=== PATIENT | male | born 1985 | race African-American/Black ===

== ENCOUNTER 2019-07-23 01:47 | Emergency (ER) | payer SELFPAY ==
[2019-07-23] MEDS ORDERED: DOXYCYCLINE 100 MG CAP PO ONE (02:44)
[2019-07-23] MEDS ORDERED: IBUPROFEN 400 MG TAB ONE (02:44)
--- NOTE | 2019-07-23 02:50 | ER ---
Nurse's Notes [facility] Name: Alfredo Day Age: 33 yrs Sex: Male : 1985 Arrival Date: 07/23/2019 Time: 01:49 Bed 7 Private MD: Diagnosis: Cellulitis of left finger-middle Presentation: 07/23 02:00 Presenting complaint: Patient states: about 3 days ago I think I got a bug bite on my jb4 left middle finger. It started off as a bump that got worse so yesterday I tried to pete it and pus and blood came out. the swelling went down a little after that but its still red swollen and painful. 02:00 Transition of care: patient was not received from another setting of care. Onset of jb4 symptoms was July 23, 2019. Risk Assessment: Do you want to hurt yourself or someone else? Patient reports no desire to harm self or others. Initial Sepsis Screen: Does the patient meet any 2 criteria? HR > 90 bpm. Yes Does the patient have a suspected source of infection? Yes: Skin breakdown/wound. Care prior to arrival: None. 02:00 Method Of Arrival: Ambulatory jb4 02:00 Acuity: JAREN 4 jb4 Historical: - Allergies: 02:09 No Known Allergies; jb4 - Home Meds: 02:09 None [Active]; jb4 - PMHx: 02:09 None; jb4 - PSHx: 02:09 None; jb4 - Immunization history:: Adult Immunizations unknown. - Social history:: Smoking status: Patient uses tobacco products, smokes one pack cigarettes per day. Patient uses street drugs, Methamphetamine (Meth) Patient/guardian denies using alcohol. - Ebola Screening: : No symptoms or risks identified at this time. Screenin:04 Abuse screen: Denies threats or abuse. Nutritional screening: No deficits noted. ea Tuberculosis screening: No symptoms or risk factors identified. Fall Risk None identified. Assessment: 02:05 General: Appears in no apparent distress. Behavior is calm, cooperative, appropriate ea for age. Pain: Complains of pain in left hand. Neuro: Level of Consciousness is awake, alert, obeys commands, Oriented to person, place, time, situation. Cardiovascular: Patient's skin is warm and dry. Respiratory: Airway is patent Respiratory effort is even, unlabored, Respiratory pattern is regular, symmetrical. Derm: Skin is pink, warm \T\ dry. swelling to left middle finger. 02:55 Reassessment: Patient appears in no apparent distress at this time. Patient is alert, rr5 oriented x 3, equal unlabored respirations, skin warm/dry/pink. discharge instruction given and explained without complaints made, verbalized understanding Patient states feeling better. Patient states symptoms have improved. Vital Signs: 02:09 BP 135 / 104; Pulse 102; Resp 18; Temp 98.0(O); Pulse Ox 97% on R/A; Weight 97.52 kg jb4 (R); Height 6 ft. 3 in. (190.50 cm) (R); Pain 10/10; 02:50 BP 128 / 90; Pulse 89; Resp 18; Temp 97.8; Pulse Ox 99% on R/A; ea 02:09 Body Mass Index 26.87 (97.52 kg, 190.50 cm) jb4 ED Course: 01:49 Patient arrived in ED. ds1 01:57 Jv Travis PA is PHCP. cp 01:57 Miguel Ángel Marroquin MD is Attending Physician. cp 02:04 Lidia Mcmanus, AMARJIT is Primary Nurse. ea 02:04 Patient has correct armband on for positive identification. Bed in low position. Call ea light in reach. Side rails up X2. 02:04 Arm band placed on right wrist. Patient placed in an exam room, on a stretcher, on ea pulse oximetry. 02:07 Triage completed. jb4 02:47 No provider procedures requiring assistance completed. Patient did not have IV access rr5 during this emergency room visit. Wound care: to puncture located on dorsal aspect of distal phalanx of left middle finger was cleaned with Hibiclens, dressed with Neosporin, band aid, Patient tolerated well. Administered Medications: 02:47 Drug: Doxycycline 100 mg Route: PO; rr5 02:51 Follow up: Response: No adverse reaction ea 02:55 Follow up: Response: Medication administered at discharge. rr5 02:47 Drug: Ibuprofen 800 mg Route: PO; rr5 02:52 Follow up: Response: No adverse reaction ea 02:55 Follow up: Response: Medication administered at discharge. rr5 Outcome: 02:50 Discharge ordered by . cp 02:57 Discharged to home ambulatory. rr5 02:57 Condition: stable 02:57 Discharge instructions given to patient, Instructed on discharge instructions, follow up and referral plans. medication usage, Demonstrated understanding of instructions, follow-up care, medications, Prescriptions given X 2. 02:58 Patient left the ED. rr5 Signatures: Catalina Cheung ds1 Jv Travis PA PA cp Bryson, James, RN RN jb4 Lidia Mcmanus RN RN Jordi Valderrama RN RN rr5
--- NOTE | 2019-07-23 02:50 | EDPHYS ---
Physician Documentation [facility] Name: Alfredo Day Age: 33 yrs Sex: Male : 1985 Arrival Date: 07/23/2019 Time: 01:49 Bed 7 Private MD: ED Physician Miguel Ángel Marroquin HPI: 07/23 02:44 This 33 yrs old Black Male presents to ER via Ambulatory with complaints of Possible cp Bug Bite. 02:44 The patient or guardian reports pain, swelling, tenderness. The complaints affect the cp dorsal side distal phalanx left middle finger. Context: resulted from possible insect bite. Onset: The symptoms/episode began/occurred 3 day(s) ago. Associated signs and symptoms: Pertinent negatives: cyanosis distally, decreased sensation distally, fever. Severity of symptoms: in the emergency department the symptoms are unchanged, despite home interventions. Historical: - Allergies: 02:09 No Known Allergies; jb4 - Home Meds: 02:09 None [Active]; jb4 - PMHx: 02:09 None; jb4 - PSHx: 02:09 None; jb4 - Immunization history:: Adult Immunizations unknown. - Social history:: Smoking status: Patient uses tobacco products, smokes one pack cigarettes per day. Patient uses street drugs, Methamphetamine (Meth) Patient/guardian denies using alcohol. - Ebola Screening: : No symptoms or risks identified at this time. ROS: 02:45 Constitutional: Negative for body aches, chills, fever, poor PO intake. cp 02:45 Skin: Positive for erythema, swelling, of the dorsal side distal phalanx left middle finger. 02:45 Neuro: Negative for numbness. 02:45 All other systems are negative. Exam: 02:47 Constitutional: The patient appears in no acute distress, alert, awake, non-toxic, well cp developed, well nourished. 02:47 Skin: Appearance: swelling, mild erythema, tenderness to palpation, cellulitis, that is mild, on the distal phalanx left middle finger dorsal side. Vital Signs: 02:09 BP 135 / 104; Pulse 102; Resp 18; Temp 98.0(O); Pulse Ox 97% on R/A; Weight 97.52 kg jb4 (R); Height 6 ft. 3 in. (190.50 cm) (R); Pain 10/10; 02:50 BP 128 / 90; Pulse 89; Resp 18; Temp 97.8; Pulse Ox 99% on R/A; ea 02:09 Body Mass Index 26.87 (97.52 kg, 190.50 cm) jb4 MDM: 01:57 Patient medically screened. cp 02:48 Differential diagnosis: abscess, cellulitis, paronychia, felon. Data reviewed: vital cp signs, nurses notes, and as a result, I will discharge patient. Administered Medications: 02:47 Drug: Doxycycline 100 mg Route: PO; rr5 02:51 Follow up: Response: No adverse reaction ea 02:55 Follow up: Response: Medication administered at discharge. rr5 02:47 Drug: Ibuprofen 800 mg Route: PO; rr5 02:52 Follow up: Response: No adverse reaction ea 02:55 Follow up: Response: Medication administered at discharge. rr5 Disposition: 03:05 Chart complete. cp 03:22 Co-signature as Attending Physician, Miguel Ángel Marroquin MD. rn Disposition: 07/23/19 02:50 Discharged to Home. Impression: Cellulitis of left finger - middle. - Condition is Stable. - Discharge Instructions: Cellulitis, Adult. - Prescriptions for Doxycycline Hyclate 100 mg Oral Tablet - take 1 tablet by ORAL route every 12 hours; 20 tablet. Ibuprofen 800 mg Oral Tablet - take 1 tablet by ORAL route every 8 hours As needed take with food; 30 tablet. - Medication Reconciliation Form, Thank You Letter, Antibiotic Education, Prescription Opioid Use form. - Follow up: Private Physician; When: 2 - 3 days; Reason: Recheck today's complaints. - Problem is new. - Symptoms have improved. Signatures: Miguel Ángel Marroquin MD MD rn Page, Corey, PA PA cp Bryson, James, RN RN jb4 Lidia Mcmanus RN RN Jordi Valderrama RN RN rr5 Corrections: (The following items were deleted from the chart) 02:58 02:50 07/23/2019 02:50 Discharged to Home. Impression: Cellulitis of left finger - rr5 middle. Condition is Stable. Forms are Medication Reconciliation Form, Thank You Letter, Antibiotic Education, Prescription Opioid Use. Follow up: Private Physician; When: 2 - 3 days; Reason: Recheck today's complaints. Problem is new. Symptoms have improved. cp
[2019-07-23 03:07] VITALS: BP 128/90; TEMP 97.8; O2SAT 99
== END 2019-07-23 02:58 | disposition home or self-care (01) ==
LOC: ER 01:47
DX: L03.012 Cellulitis of left finger (principal); F17.210 Nicotine dependence, cigarettes, uncomplicated
CPT/HCPCS: 99284

== ENCOUNTER 2023-04-21 19:45 | Emergency (ER) | payer SELFPAY ==
[2023-04-21] MEDS ORDERED: DICYCLOMINE HCL 20 MG/2 ML AMP IM ONE (21:17)
[2023-04-21] MEDS ORDERED: NA CHLORIDE 0.9% 1,000 ML ONE ×2 (21:17→22:16)
[2023-04-21] MEDS ORDERED: ONDANSETRON 4 MG/2 ML VIAL ONE (21:17)
[2023-04-21] MEDS ORDERED: FAMOTIDINE 20 MG/2 ML VIAL IV ONE (21:18)
[2023-04-21 21:42] LABS: Absolute Lymphocytes (CBC) 1.3 K/uL (0.7-4.9); Hematocrit 50.8 % (39.6-49.0); MCV 94.7 fL (80-100); MPV 8.2 fL (7.6-11.3); RBC Red Blood Cell Count 5.36 M/uL (4.33-5.43)
[2023-04-21 21:46] LABS: Specific Gravity > 1.030 (1.005-1.030); Urine Bacteria None Seen /HPF (<20); Urine Bilirubin NEGATIVE (Negative); Urine Blood 1+ (Negative); Urine Clarity Extremely Turbid (Clear); Urine Color Yellow (Yellow); Urine Crystals Unidentified Few /HPF (None Seen); Urine Glucose NEGATIVE (Negative); Urine Mucus 1+ /HPF (None Seen); Urine Protein 1+ (Negative); Urine Urobilinogen Normal (Normal); Urine pH 5.5 (5.0-7.0)
[2023-04-21 21:54] LABS: Albumin 3.5 g/dL (3.4-5.0); Bilirubin Total 0.5 mg/dL (0.2-1.0); Potassium 3.7 mEq/L (3.5-5.1); Protein, Total 7.8 g/dL (6.4-8.2)
[2023-04-21 22:28] LABS: Barbiturates NEGATIVE (NEGATIVE); Benzodiazepines NEGATIVE (NEGATIVE); Cocaine NEGATIVE (NEGATIVE); METHAMPHETAM NEGATIVE (NEGATIVE); Methadone NEGATIVE (NEGATIVE); Opiates NEGATIVE (NEGATIVE); Phencyclidine NEGATIVE (NEGATIVE); THC Cannibis NEGATIVE (NEGATIVE)
--- NOTE | 2023-04-21 22:29 | RAD REPORT ---
EXAM DESCRIPTION: CTAbdomen Pelvis Wo Contrast - 04/21/2023 10:21 pm CLINICAL HISTORY: ABD PAIN COMPARISON: No comparisons TECHNIQUE: CT of the abdomen and pelvis was performed. All CT scans are performed using dose optimization technique as appropriate and may include automated exposure control or mA/KV adjustment according to patient size. FINDINGS: Lower chest: No acute abnormality. Liver: No acute abnormality or suspicious lesions. Biliary: No biliary ductal dilatation. Stomach: No significant focal abnormality. Duodenum: No significant focal abnormality. Pancreas: No significant abnormality. Spleen: No significant abnormality. Adrenal: No suspicious lesions. Kidney/ureter: No hydronephrosis. No renal calculi. 11 mm low-density right interpolar renal lesion i s consistent with a cyst. Minimally complex left renal cyst with some layering calcium. Retroperitoneum: No retroperitoneal adenopathy. Vascular: No aneurysm. Bowel: Diffuse colonic wall thickening which is more pronounced at the ascending and transverse colon . Normal appendix. No small bowel obstruction.. Peritoneum: No ascites or free air. Bladder: Grossly unremarkable. Reproductive: No adnexal masses. Bones: No acute fracture. Other: n/a IMPRESSION: Pancolitis with differential to include infectious inflammatory etiologies. Normal appen jennifer. No bowel obstruction.
[2023-04-21] MEDS ORDERED: CIPROFLOXACIN 400mg IV 400 MG/200 ML BAG IV ONE (22:55)
[2023-04-21] MEDS ORDERED: ACETAMINOPHEN 500 MG TAB ONE (22:55)
[2023-04-21] MEDS ORDERED: METRONIDAZOLE 500mg IVPB 500 MG/100 ML BAG IV ONE (22:55)
--- NOTE | 2023-04-21 23:29 | EDPHYS ---
Physician Documentation [facility] Name: Alfredo Day Age: 37 yrs Sex: Male : 1985 Arrival Date: 04/21/2023 Time: 19:45 Bed 15 Private MD: ED Physician Travon Norris HPI: 04/21 21:00 This 37 yrs old Black Male presents to ER via Ambulatory with complaints of Nausea, cp Diarrhea, bodyaches, chills. 21:00 The patient presents to the emergency department with nausea, that is moderate, cp vomiting, that is intermittent, diarrhea, that is continuous, abdominal pain, of the mid abdomen. Onset: The symptoms/episode began/occurred 2 day(s) ago. Possible causes: bad food exposure, pizza. The symptoms are alleviated by nothing. Associated signs and symptoms: Pertinent positives: anorexia, Pertinent negatives: constipation, fever, GI bleeding, active vomiting. Severity of symptoms: in the emergency department the symptoms are unchanged despite home interventions. Historical: - Allergies: 20:24 No Known Allergies; cm10 - Home Meds: 20:24 None [Active]; cm10 - PMHx: 20:24 None; cm10 - PSHx: 20:24 None; cm10 - Immunization history:: Adult Immunizations unknown. - Social history:: Smoking status: Patient reports the use of cigarette tobacco products, smokes one pack cigarettes per day. ROS: 21:05 Constitutional: Positive for body aches, poor PO intake, Negative for fever. cp 21:05 Eyes: Negative for injury, pain, redness, and discharge. cp 21:05 ENT: Negative for drainage from ear(s), ear pain, sore throat, difficulty swallowing, difficulty handling secretions. 21:05 Respiratory: Negative for cough, shortness of breath, wheezing. 21:05 Abdomen/GI: Positive for abdominal pain, nausea, vomiting, and diarrhea, anorexia, Negative for constipation, black/tarry stool, rectal bleeding. 21:05 Neuro: Negative for altered mental status, headache. 21:05 All other systems are negative. Exam: 21:10 Constitutional: The patient appears in no acute distress, alert, awake, non-toxic, well cp developed, well nourished. 21:10 Head/Face: Normocephalic, atraumatic. cp 21:10 Eyes: Periorbital structures: appear normal, Conjunctiva: normal, no exudate, no injection, Sclera: no appreciated abnormality, Lids and lashes: appear normal, bilaterally. 21:10 ENT: External ear(s): are unremarkable, Nose: is normal, Mouth: Lips: moist, Oral mucosa: pink and intact, moist, Posterior pharynx: is normal, airway is patent, no erythema, no exudate. 21:10 Neck: ROM/movement: is normal, is supple, without pain, no range of motions limitations, no meningismus. 21:10 Chest/axilla: Inspection: normal. 21:10 Cardiovascular: Rate: tachycardic, Rhythm: regular. 21:10 Respiratory: the patient does not display signs of respiratory distress, Respirations: normal, no use of accessory muscles, no retractions, labored breathing, is not present, Breath sounds: are clear throughout, no decreased breath sounds, no stridor, no wheezing. 21:10 Abdomen/GI: Inspection: abdomen appears normal, Bowel sounds: active, all quadrants, Palpation: soft, in all quadrants, moderate abdominal tenderness, in all quadrants, rebound tenderness, is not appreciated, involuntary guarding, is not appreciated. 21:10 Back: pain, is absent, ROM is normal. 21:10 Skin: no rash present. 21:10 Neuro: Orientation: to person, place \T\ time. Mentation: is normal, Motor: moves all fours, strength is normal. Vital Signs: 20:22 BP 143 / 85; Pulse 104; Resp 16; Temp 98.8; Pulse Ox 100% on R/A; Weight 102.06 kg; cm10 Height 6 ft. 3 in. ; Pain 8; 21:23 BP 137 / 89; Pulse 90; Resp 15; Pulse Ox 98% ; vc1 22:00 BP 125 / 77; Pulse 95; Resp 17; Pulse Ox 98% ; vc1 23:00 BP 143 / 74; Pulse 90; Resp 17; Pulse Ox 97% ; vc1 04/22 00:00 BP 137 / 80; Pulse 92; Resp 16; Pulse Ox 97% on R/A; pf1 04/21 20:22 Body Mass Index 28.12 (102.06 kg, 190.5 cm) cm10 04/21 20:22 Pain Scale: Adult cm10 MDM: 04/21 20:33 Patient medically screened. cp 22:00 Differential diagnosis: gastritis, viral gastroenteritis, gastroenteritis, dehydration, cp colitis. 23:28 Data reviewed: vital signs, nurses notes, lab test result(s), radiologic studies, CT cp scan. 23:28 Consideration of Admission/Observation Escalation of care including cp admission/observation considered. I considered the following discharge prescriptions or medication management in the emergency department Medications were administered in the Emergency Department. See MAR. Counseling: I had a detailed discussion with the patient and/or guardian regarding: the historical points, exam findings, and any diagnostic results supporting the discharge/admit diagnosis, lab results, radiology results, the need for outpatient follow up, a lunchroom food service supervisor, to return to the emergency department if symptoms worsen or persist or if there are any questions or concerns that arise at home. Response to treatment: the patient's symptoms have markedly improved after treatment, and as a result, I will discharge patient. Special discussion: Based on the patient's Hx, exam, and Dx evaluation, there is no indication for emergent surgery or inpatient Tx. It is understood by the patient/guardian that if the Sx's persist or worsen they need to return immediately for re-evaluation. 04/21 20:51 Order name: CBC with Diff; Complete Time: 21:57 cp 04/21 21:58 Interpretation: Normal except: WBC 12.60; HCT 50.8; ASHU% 83.5; LYM% 10.0; NEUT A 10.6. cp 04/21 20:51 Order name: CMP; Complete Time: 21:57 04/21 21:58 Interpretation: Normal except: CRE 1.70; GFR 53; GLOB 4.3; A/G 0.8. cp 04/21 20:51 Order name: Lipase; Complete Time: 21:57 cp 04/21 20:51 Order name: Urinalysis w/ reflexes; Complete Time: 21:57 cp 04/21 20:52 Order name: Influenza Screen (a \T\ B); Complete Time: 22:30 cp 04/21 20:52 Order name: COVID-19 SARS RT PCR; Complete Time: 22:30 cp 04/21 22:30 Interpretation: Reviewed. 04/21 21:59 Order name: CK; Complete Time: 22:30 cp 04/21 22:30 Interpretation: Reviewed. 04/21 21:59 Order name: UDS; Complete Time: 22:30 cp 04/21 22:38 Order name: Ova And Parasites 04/21 22:38 Order name: Rotavirus Antigen 04/21 22:38 Order name: Stool Culture 04/21 22:38 Order name: CDIFF 04/21 21:59 Order name: CT Abd/Pelvis - Without Contrast; Complete Time: 22:30 cp 04/21 20:51 Order name: IV Saline Lock; Complete Time: 21:34 04/21 20:51 Order name: Labs collected and sent; Complete Time: 21:34 cp Administered Medications: 21:33 Drug: Famotidine IVP 20 mg Route: IVP; Site: right antecubital; vc1 23:33 Follow up: Response: No adverse reaction; Marked relief of symptoms vc1 21:33 Drug: Dicyclomine IM 20 mg Route: IM; Site: right gluteus; vc1 23:35 Follow up: Response: No adverse reaction; Marked relief of symptoms vc1 21:34 Drug: NS 0.9% IV 1000 ml Route: IV; Rate: 1 bolus; Site: right antecubital; vc1 22:30 Follow up: Response: No adverse reaction; Marked relief of symptoms; IV Status: pf1 Completed infusion; IV Intake: 1000ml 21:34 Drug: Ondansetron IVP 4 mg Route: IVP; Site: right antecubital; vc1 23:33 Follow up: Response: No adverse reaction; Marked relief of symptoms vc1 22:08 Drug: NS 0.9% IV 1000 ml Route: IV; Rate: 1 bolus; Site: right antecubital; pf1 23:30 Follow up: Response: No adverse reaction; Marked relief of symptoms; IV Status: pf1 Completed infusion; IV Intake: 1000ml 23:10 Drug: Acetaminophen PO 1000 mg Route: PO; pf1 23:35 Follow up: Response: No adverse reaction; Marked relief of symptoms; Pain is decreased vc1 23:15 Drug: metroNIDAZOLE IVPB 500 mg Volume: 100 ml; Route: IVPB; Infused Over: 30 mins; pf1 Site: right antecubital; 04/22 00:15 Follow up: Response: No adverse reaction; Marked relief of symptoms; IV Status: pf1 Completed infusion; IV Intake: 100ml 04/21 23:49 Drug: Ciprofloxacin IVPB 400 mg Volume: 200 ml; Route: IVPB; Infused Over: 60 mins; vc1 Site: right antecubital; 04/22 01:00 Follow up: Response: No adverse reaction; Marked relief of symptoms; IV Status: pf1 Completed infusion; IV Intake: 200ml Disposition: 20:52 Co-signature as Attending Physician, Travon Norris MD I agree with the assessment sp4 and plan of care. I reviewed the patient's care provided by the Advanced Practice Provider and agree with the diagnosis and treatment plan. Disposition Summary: 04/21/23 23:28 Discharge Ordered Location: Home cp Problem: new cp Symptoms: have improved cp Condition: Stable cp Diagnosis - Indeterminate colitis cp - Volume depletion, unspecified cp Followup: cp - With: Clay Colbert MD - When: 2 - 3 days - Reason: Recheck today's complaints Discharge Instructions: - Discharge Summary Sheet cp - Dehydration, Adult cp - Colitis cp Forms: - Medication Reconciliation Form cp - Thank You Letter cp - Antibiotic Education cp - Prescription Opioid Use cp - Patient Portal [email or web address].htm cp - Work release form bc6 Prescriptions: - Zofran 4 mg Oral Tablet - take 1 tablet by ORAL route every 12 hours As needed; 20 tablet; Refills: 0, cp Product Selection Permitted - Cipro 500 mg Oral Tablet - take 1 tablet by ORAL route every 12 hours for 10 days; 20 tablet; Refills: 0, cp Product Selection Permitted - Metronidazole 500 mg Oral Tablet - take 1 tablet by ORAL route every 8 hours; 30 tablet; Refills: 0, Product cp Selection Permitted - dicyclomine 20 mg Oral Tablet - take 1 tablet by ORAL route 4 times per day; 30 tablet; Refills: 0, Product cp Selection Permitted Signatures: Dispatcher [employer] EDMS Jv Travis PA PA cp Bing Retana RN RN vc1 Michelle Hayes RN RN pf1 Potepalov, Sergey, MD MD sp4 Kaitlin Jimenez RN RN cm10 Corrections: (The following items were deleted from the chart) 04/21 20:24 20:24 Allergies: Aspirin; cm10 cm10
--- NOTE | 2023-04-21 23:29 | ER ---
Nurse's Notes [facility] Name: Alfredo Day Age: 37 yrs Sex: Male : 1985 Arrival Date: 04/21/2023 Time: 19:45 Bed 15 Private MD: Diagnosis: Indeterminate colitis;Volume depletion, unspecified Presentation: 04/21 20:22 Chief complaint: Patient states: nausea, diarrhea, body aches and chills X2 days. Pt cm10 reports subjective fevers. Pt denies sick contacts. Coronavirus screen: Vaccine status: Patient reports receiving the 2nd dose of the covid vaccine. Client denies travel out of the [place] in the last 14 days. Ebola Screen: No symptoms or risks identified at this time. Initial Sepsis Screen: Does the patient meet any 2 criteria? No. Patient's initial sepsis screen is negative. Does the patient have a suspected source of infection? No. Patient's initial sepsis screen is negative. Risk Assessment: Do you want to hurt yourself or someone else? Patient reports no desire to harm self or others. Onset of symptoms was April 19, 2023. 20:22 Method Of Arrival: Ambulatory cm10 20:22 Acuity: JAREN 4 cm10 Triage Assessment: 20:24 General: Appears in no apparent distress. comfortable, Behavior is. Pain:. GI: Reports cm10 diarrhea, nausea. Historical: - Allergies: 20:24 No Known Allergies; cm10 - Home Meds: 20:24 None [Active]; cm10 - PMHx: 20:24 None; cm10 - PSHx: 20:24 None; cm10 - Immunization history:: Adult Immunizations unknown. - Social history:: Smoking status: Patient reports the use of cigarette tobacco products, smokes one pack cigarettes per day. Screenin:[address] [facility] ED Fall Risk Assessment (Adult) History of falling in the last 3 months, vc1 including since admission No falls in past 3 months (0 pts) Confusion or Disorientation No (0 pts) Intoxicated or Sedated No (0 pts) Impaired Gait No (0 pts) Mobility Assist Device Used No (0 pt) Altered Elimination No (0 pt) Score/Fall Risk Level 0 - 2 = Low Risk Oriented to surroundings, Maintained a safe environment, Educated pt \T\ family on fall prevention, incl call for assistance when getting out of bed. Abuse screen: Denies threats or abuse. Nutritional screening: No deficits noted. Tuberculosis screening: No symptoms or risk factors identified. Assessment: 21:00 Reassessment: No changes from previously documented assessment. Patient and/or family vc1 updated on plan of care and expected duration. Pain level reassessed. Patient is alert, oriented x 3, equal unlabored respirations, skin warm/dry/pink. GI: Abdomen is flat, non-distended, Reports lower abdominal pain, upper abdominal pain, diarrhea, nausea, vomiting. 22:00 Reassessment: No changes from previously documented assessment. Patient and/or family vc1 updated on plan of care and expected duration. Pain level reassessed. Patient is alert, oriented x 3, equal unlabored respirations, skin warm/dry/pink. 23:00 Reassessment: Patient and/or family updated on plan of care and expected duration. Pain vc1 level reassessed. Patient is alert, oriented x 3, equal unlabored respirations, skin warm/dry/pink. Patient states feeling better. Patient states symptoms have improved. 23:49 Reassessment: Will discharge after antibiotic finishes. vc1 04/22 01:00 Reassessment: Patient appears in no apparent distress at this time. No changes from pf1 previously documented assessment. Patient and/or family updated on plan of care and expected duration. Pain level reassessed. Patient is alert, oriented x 3, equal unlabored respirations, skin warm/dry/pink. Patient states feeling better. Patient states symptoms have improved. Vital Signs: 04/21 20:22 BP 143 / 85; Pulse 104; Resp 16; Temp 98.8; Pulse Ox 100% on R/A; Weight 102.06 kg; cm10 Height 6 ft. 3 in. ; Pain 8/; 21:23 BP 137 / 89; Pulse 90; Resp 15; Pulse Ox 98% ; vc1 22:00 BP 125 / 77; Pulse 95; Resp 17; Pulse Ox 98% ; vc1 23:00 BP 143 / 74; Pulse 90; Resp 17; Pulse Ox 97% ; vc1 04/22 00:00 BP 137 / 80; Pulse 92; Resp 16; Pulse Ox 97% on R/A; pf1 04/21 20:22 Body Mass Index 28.12 (102.06 kg, 190.5 cm) cm10 04/21 20:22 Pain Scale: Adult cm10 ED Course: 04/21 19:46 Patient arrived in ED. am2 20:24 Triage completed. cm10 20:25 Arm band placed on Patient placed in waiting room. cm10 20:30 Patient has correct armband on for positive identification. Bed in low position. vc1 Provided Education on: Educate NPO until test results. 20:33 Jv Travis PA is PHCP. cp 20:33 Travon Norris MD is Attending Physician. cp 20:58 Bing Retana, AMARJIT is Primary Nurse. vc1 21:15 Inserted saline lock: 22 gauge in right antecubital area, using aseptic technique. vc1 Blood collected. 21:33 COVID-19 SARS RT PCR Sent. vc1 21:33 Influenza Screen (a \T\ B) Sent. vc1 21:34 CBC with Diff Sent. vc1 21:34 CMP Sent. vc1 21:34 Lipase Sent. vc1 21:34 Urinalysis w/ reflexes Sent. vc1 22:06 UDS Sent. pf1 22:06 CK Sent. pf1 22:22 CT Abd/Pelvis - Without Contrast In Process Unspecified. EDMS 23:16 Stool Culture Sent. pf1 23:16 Rotavirus Antigen Sent. pf1 23:27 Clay Colbert MD is Referral Physician. cp 04/22 01:26 No provider procedures requiring assistance completed. IV discontinued, intact, pf1 bleeding controlled, No redness/swelling at site. Pressure dressing applied. Administered Medications: 04/21 21:33 Drug: Famotidine IVP 20 mg Route: IVP; Site: right antecubital; vc1 23:33 Follow up: Response: No adverse reaction; Marked relief of symptoms vc1 21:33 Drug: Dicyclomine IM 20 mg Route: IM; Site: right gluteus; vc1 23:35 Follow up: Response: No adverse reaction; Marked relief of symptoms vc1 21:34 Drug: NS 0.9% IV 1000 ml Route: IV; Rate: 1 bolus; Site: right antecubital; vc1 22:30 Follow up: Response: No adverse reaction; Marked relief of symptoms; IV Status: pf1 Completed infusion; IV Intake: 1000ml 21:34 Drug: Ondansetron IVP 4 mg Route: IVP; Site: right antecubital; vc1 23:33 Follow up: Response: No adverse reaction; Marked relief of symptoms vc1 22:08 Drug: NS 0.9% IV 1000 ml Route: IV; Rate: 1 bolus; Site: right antecubital; pf1 23:30 Follow up: Response: No adverse reaction; Marked relief of symptoms; IV Status: pf1 Completed infusion; IV Intake: 1000ml 23:10 Drug: Acetaminophen PO 1000 mg Route: PO; pf1 23:35 Follow up: Response: No adverse reaction; Marked relief of symptoms; Pain is decreased vc1 23:15 Drug: metroNIDAZOLE IVPB 500 mg Volume: 100 ml; Route: IVPB; Infused Over: 30 mins; pf1 Site: right antecubital; 04/22 00:15 Follow up: Response: No adverse reaction; Marked relief of symptoms; IV Status: pf1 Completed infusion; IV Intake: 100ml 04/21 23:49 Drug: Ciprofloxacin IVPB 400 mg Volume: 200 ml; Route: IVPB; Infused Over: 60 mins; vc1 Site: right antecubital; 04/22 01:00 Follow up: Response: No adverse reaction; Marked relief of symptoms; IV Status: pf1 Completed infusion; IV Intake: 200ml Medication: 04/21 22:18 VIS not applicable for this client. vc1 Intake: 22:30 IV: 1000ml; Total: 1000ml. pf1 23:30 IV: 1000ml; Total: 2000ml. pf1 04/22 00:15 IV: 100ml; Total: 2100ml. pf1 01:00 IV: 200ml; Total: 2300ml. pf1 Outcome: 04/21 23:28 Discharge ordered by . james 04/22 01:25 Discharged to home ambulatory, with family. pf1 Condition: improved Discharge instructions given to patient, Instructed on discharge instructions, follow up and referral plans. Demonstrated understanding of instructions, follow-up care, medications, Prescriptions given X 4. 01:27 Patient left the ED. pf1 Signatures: Dispatcher [employer] EDMS Jv Travis PA PA cp Moreno, Amanda am2 Bing Retana RN RN vc1 Michelle Hayes RN RN pf1 Kaitlin Jimenez RN RN cm10 Corrections: (The following items were deleted from the chart) 04/21 20:24 20:24 Allergies: Aspirin; cm10 cm10
[2023-04-22 02:05] VITALS: O2SAT 97
[2023-04-22 02:06] VITALS: BP 137/80
[2023-04-22 05:24] LABS: C.diff Antigen/Toxin Ag neg : Tox neg (NEG : NEG)
== END 2023-04-22 01:27 | disposition home or self-care (01) ==
LOC: ER 19:45
DX: K52.3 Indeterminate colitis (principal); E86.9 Volume depletion, unspecified
CPT/HCPCS: 36415; 74176; 80053; 80307; 81001; 82550; 83690; 85025; 87045; 87046; 87177; 87209; 87324; 87425; 87635; 87804; 96361; 96365; 96372; 96375; 99284; J0500; J0744; J2405; J7030

== ENCOUNTER → 2023-10-26 | Emergency (ER) | payer SELFPAY ==
[~2023-10-26] MED LIST: KETOROLAC 30 MG/ML INJ ONE; LORazepam 2 MG/ML VIAL ONE; NA CHLORIDE 0.9% 1,000 ML ONE
[2023-10-26 18:58] LABS: Absolute Lymphocytes (CBC) 0.4 K/uL (0.7-4.9); Hematocrit 44.2 % (39.6-49.0); Lymphocytes % 6.6 % (15.3-44.8); MCV 92.9 fL (80-100); MPV 7.3 fL (7.6-11.3); Platelets 164 thou/uL (152-406); RBC Red Blood Cell Count 4.76 M/uL (4.33-5.43)
[2023-10-26 19:17] LABS: Protime INR 1.03
[2023-10-26 19:19] LABS: Albumin 3.3 g/dL (3.4-5.0); Bilirubin Total 0.3 mg/dL (0.2-1.0); Protein, Total 7.4 g/dL (6.4-8.2); Troponin High Sensitivity 11.1 pg/mL (<58.9)
[2023-10-26 19:25] LABS: Specific Gravity 1.019 (1.005-1.030); Urine Bilirubin NEGATIVE (Negative); Urine Blood Negative (Negative); Urine Clarity Clear (Clear); Urine Color Light-Yellow (Yellow); Urine Glucose TRACE (Negative); Urine Protein NEGATIVE (Negative); Urine Urobilinogen Normal (Normal)
[2023-10-26 19:38] LABS: Barbiturates NEGATIVE (NEGATIVE); Benzodiazepines NEGATIVE (NEGATIVE); Cocaine NEGATIVE (NEGATIVE); METHAMPHETAM POSITIVE (NEGATIVE); Methadone NEGATIVE (NEGATIVE); Opiates NEGATIVE (NEGATIVE); Phencyclidine NEGATIVE (NEGATIVE); THC Cannibis NEGATIVE (NEGATIVE)
--- NOTE | 2023-10-26 19:54 | RAD REPORT ---
EXAM DESCRIPTION: RAD - Chest Single View - 10/26/2023 7:05 pm CLINICAL HISTORY: Chest pain;Cough Chest pain. COMPARISON: <Comparisons> FINDINGS: Portable technique limits examination quality. The lungs are grossly clear. The heart is normal in size. No displaced fractures. IMPRESSION: No acute intrathoracic process suspected.
[2023-10-26 20:02] LABS: Blood Morphology Comment NOT SEEN (NOT SEEN); Platelet Estimate ADEQ; White Blood Cell Scan OK (OK)
--- NOTE | 2023-10-26 20:21 | RAD REPORT ---
EXAM DESCRIPTION: CT - Chest For Pe Angio - 10/26/2023 8:12 pm CLINICAL HISTORY: Chest pain. CHEST PAIN COMPARISON: <Comparisons> TECHNIQUE: CT angiogram of the pulmonary arteries was performed with MIP. All CT scans are performed using dose optimization technique as appropriate and may include automated exposure control or mA/KV adjustment according to patient size. FINDINGS: No evidence of pulmonary thromboembolism. No acute aortic finding demonstrated. The lungs are clear. No significant pericardial or pleural fluid. No concerning bony finding. IMPRESSION: No evidence of pulmonary thromboembolism. No acute lung findings.
--- NOTE | 2023-10-26 21:47 | EDPHYS ---
Physician Documentation [facility] Name: Alfredo Day Age: 38 yrs Sex: Male : 1985 Arrival Date: 10/26/2023 Time: 18:15 Bed 4 Private MD: ED Physician Jv Salazar HPI: 10/26 18:40 This 38 yrs old Black Male presents to ER via Ambulatory with complaints of Flu cp Symptoms. 18:40 The patient or guardian reports cough, that is intermittent, flu symptoms, body aches, cp fever. 18:40 Onset: The symptoms/episode began/occurred 3 day(s) ago. Associated signs and symptoms: cp Pertinent positives: chest pain, with cough, sore throat, Pertinent negatives: diarrhea, vomiting. Severity of symptoms: in the emergency department the symptoms are unchanged despite home interventions. 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 cp Historical: - Allergies: 18:26 No Known Allergies; cm10 - Home Meds: 18:26 None [Active]; cm10 - PMHx: 18:26 None; cm10 - PSHx: 18:26 None; cm10 - Immunization history:: Adult Immunizations up to date. - Social history:: Smoking status: Patient reports the use of cigarette tobacco products, smokes two packs cigarettes per day. ROS: 18:45 Constitutional: Positive for body aches, poor PO intake, Negative for fever, cp 18:45 Eyes: Negative for injury, pain, redness, and discharge, cp 18:45 ENT: Positive for sore throat, Negative for drainage from ear(s), ear pain, difficulty swallowing, difficulty handling secretions, 18:45 Cardiovascular: Positive for chest pain, with cough, 18:45 Respiratory: Positive for cough, shortness of breath, 18:45 Abdomen/GI: Negative for vomiting, diarrhea, constipation, 18:45 Neuro: Negative for altered mental status, dizziness, headache, syncope, weakness, 18:45 All other systems are negative, Exam: 18:48 ECG was reviewed by the Attending Physician. cp 18:50 Constitutional: The patient appears in no acute distress, alert, awake, cp non-diaphoretic, non-toxic, well developed, well nourished, 18:50 Head/Face: Normocephalic, atraumatic. cp 18:50 Eyes: Periorbital structures: appear normal, Conjunctiva: normal, no exudate, no injection, Sclera: no appreciated abnormality, Lids and lashes: appear normal, bilaterally, 18:50 ENT: External ear(s): are unremarkable, Ear canal(s): are normal, clear, TM's: dullness, bilaterally, Nose: is normal, Mouth: Lips: moist, Oral mucosa: pink and intact, moist, Posterior pharynx: Airway: no evidence of obstruction, patent, Tonsils: no enlargement, no exudate, erythema, that is mild, exudate, is not appreciated, 18:50 Neck: ROM/movement: is normal, is supple, without pain, no range of motions limitations, no meningismus, 18:50 Chest/axilla: Inspection: normal, Palpation: is normal, no crepitus, no tenderness, 18:50 Cardiovascular: Rate: tachycardic, Rhythm: regular, Edema: is not appreciated, JVD: is not appreciated, 18:50 Respiratory: the patient does not display signs of respiratory distress, Respirations: labored breathing, is not present, intercostal retractions, are absent, Breath sounds: are clear throughout, no decreased breath sounds, no stridor, no wheezing, 18:50 Abdomen/GI: Inspection: abdomen appears normal, Palpation: abdomen is soft and non-tender, in all quadrants, 18:50 Back: CVA tenderness, is absent, 18:50 Skin: cellulitis, no rash present. 18:50 Neuro: Orientation: to person, place \T\ time. Mentation: is normal, Cerebellar function: Romberg testing is negative, Motor: no acute changes, moves all fours, strength is normal, Vital Signs: 18:24 BP 122 / 82; Pulse 147; Resp 18; Temp 98.1; Pulse Ox 100% on R/A; Weight 99.79 kg; cm10 Height 6 ft. 3 in. ; Pain 8/10; 18:38 BP 147 / 111; Pulse 131; Resp 20; Pulse Ox 98% on R/A; ld1 20:24 Pulse 103; Resp 20; Pulse Ox 100% ; la4 20:28 BP 154 / 86; Pulse 107; Resp 20; Pulse Ox 97% ; Pain 8/10; la4 21:53 BP 151 / 87; Pulse 114; Resp 20; Pulse Ox 98% ; la4 18:24 Body Mass Index 27.50 (99.79 kg, 190.5 cm) cm10 18:24 Pain Scale: Adult cm10 20:28 Pain Scale: Adult la4 Gwen Coma Score: 20:28 Eye Response: spontaneous(4). Motor Response: obeys commands(6). Verbal Response: la4 oriented(5). Total: 15. MDM: 18:28 Patient medically screened. 21:46 Data reviewed: vital signs, nurses notes, lab test result(s), EKG, radiologic studies, cp CT scan, plain films. 21:46 I considered the following discharge prescriptions or medication management in the emergency department Medications were administered in the Emergency Department. See MAR. Care significantly affected by the following Social Determinants of Health: Misuse of alcohol and/or drugs. Counseling: I had a detailed discussion with the patient and/or guardian regarding the historical points, exam findings, and any diagnostic results supporting the discharge/admit diagnosis, the presence of at least one elevated blood pressure reading (>120/80) during this emergency department visit, lab results, radiology results, the need for outpatient follow up, a family practitioner, to return to the emergency department if symptoms worsen or persist or if there are any questions or concerns that arise at home. Response to treatment: the patient's symptoms have markedly improved after treatment, and as a result, I will discharge patient. 10/26 18:36 Order name: Blood Culture Adult (2) 10/26 18:36 Order name: CBC with Diff; Complete Time: 20:27 10/26 19:31 Interpretation: Normal except: MPV 7.3; ASHU% 90.5; LYM% 6.6; MN% 2.7; LYMA 0.4. 10/26 18:36 Order name: CMP; Complete Time: 19:31 10/26 21:14 Interpretation: Normal except: GLUC 152; GFR 80; CA 8.3; ALB 3.3; GLOB 4.1; A/G 0.8. 10/26 18:36 Order name: Lactate w/ 2H reflex if indic.; Complete Time: 19:31 10/26 21:15 Interpretation: Reviewed. 10/26 18:36 Order name: Protime (+inr); Complete Time: 19:31 10/26 18:36 Order name: Ptt, Activated; Complete Time: 19:31 cp 10/26 18:36 Order name: Urinalysis w/ reflexes; Complete Time: 19:31 cp 10/26 21:14 Interpretation: Normal except: UGLUC TRACE. cp 10/26 18:36 Order name: Strep cp 10/26 18:36 Order name: Troponin HS; Complete Time: 19:31 cp 10/26 21:15 Interpretation: Reviewed. 10/26 18:36 Order name: CK; Complete Time: 19:31 cp 10/26 18:36 Order name: Influenza Screen (a \T\ B); Complete Time: 19:31 cp 10/26 21:14 Interpretation: Abnormal: FLUA FLU A ----- POSITIVE for FLU A protein antigen. 10/26 18:36 Order name: COVID-19 SARS RT PCR; Complete Time: 20:27 cp 10/26 18:51 Order name: UDS; Complete Time: 20:27 cp 10/26 21:14 Interpretation: Normal except: METHAMPHETAMINE POSITIVE. 10/26 19:20 Order name: Throat Culture EDRI 10/26 20:02 Order name: CBC Smear Scan; Complete Time: 20:27 EDRI 10/26 18:36 Order name: Chest Single View XRAY; Complete Time: 20:27 10/26 19:32 Order name: CT Chest For PE Angio; Complete Time: 20:27 10/26 18:36 Order name: EKG; Complete Time: 18:37 cp 10/26 18:36 Order name: Accucheck; Complete Time: 18:40 cp 10/26 18:36 Order name: Cardiac monitoring; Complete Time: 18:40 cp 10/26 18:36 Order name: EKG - Nurse/Tech; Complete Time: 18:40 cp 10/26 18:36 Order name: IV Saline Lock - Large Bore; Complete Time: 18:40 cp 10/26 18:36 Order name: Labs collected and sent; Complete Time: 18:40 cp 10/26 18:36 Order name: O2 Per Protocol; Complete Time: 18:40 cp 10/26 18:36 Order name: O2 Sat Monitoring; Complete Time: 18:40 cp 10/26 18:36 Order name: Vital Signs; Complete Time: 18:40 cp EC:48 Rate is 129 beats/min. Rhythm is regular. OK interval is normal. QRS interval is cp normal. QT interval is normal. Interpreted by me. Reviewed by me. Administered Medications: 18:50 Drug: NS 0.9% IV 1000 ml IV at 1 bolus Per protocol; 1000 mL bolus Route: IV; Rate: 1 mb9 bolus; Site: left upper arm; 20:24 Follow up: Pulse 103 bpm; Resp 20 bpm; Pulse Ox 100% ; Response: No adverse reaction; la4 IV Status: Completed infusion; IV Intake: 1000ml 18:58 Drug: Ativan IVP 1 mg IVP once Route: IVP; Site: left upper arm; ld1 20:26 Follow up: Response: No adverse reaction; Pain is unchanged, physician notified la4 20:24 Drug: Ketorolac IVP 15 mg IVP once Route: IVP; Site: left antecubital; la4 22:00 Follow up: Response: No adverse reaction; Pain is decreased la4 20:58 Drug: NS 0.9% IV 1000 ml IV at 1 bolus Per protocol; 1000 mL bolus Route: IV; Rate: 1 la4 bolus; Site: left antecubital; 21:59 Follow up: Response: No adverse reaction; IV Status: Completed infusion; IV Intake: la4 1000ml Disposition Summary: 10/26/23 21:47 Discharge Ordered Notes: Location: Home cp Problem: new cp Symptoms: have improved cp Condition: Stable cp Diagnosis - Influenza due to identified novel influenza A virus with other respiratory cp manifestations - Adverse effect of amphetamines, initial encounter cp - Chest pain, unspecified cp Followup: cp - With: Private Physician - When: 2 - 3 days - Reason: Worsening of condition Discharge Instructions: - Discharge Summary Sheet cp - Nonspecific Chest Pain, Adult cp - Influenza, Adult cp Forms: - Medication Reconciliation Form cp - Thank You Letter cp - Antibiotic Education cp - Prescription Opioid Use cp - Patient Portal Instructions cp - Leadership Thank You Letter cp Prescriptions: - Ibuprofen 800 mg Oral Tablet - take 1 tablet ORAL route every 8 hours As needed take with food; 30 tablet; cp Refills: 0, Product Selection Permitted - Tamiflu 75 mg Oral Capsule - take 1 capsule ORAL route every 12 hours for 5 days; 10 capsule; Refills: 0, cp Product Selection Permitted Signatures: Dispatcher [employer] EDRI Jv Travis PA PA Estefani Chris RN RN ld1 Vannessa Valdez, RN RN mb9 Kaitlin Jimenez, RN RN cm10 Yissel Marcus RN RN la4 Corrections: (The following items were deleted from the chart) 18:41 18:37 Urinalysis+U.LAB.BRZ ordered. EDMS EDMS
--- NOTE | 2023-10-26 21:47 | ER ---
Nurse's Notes [facility] Name: Alfredo Day Age: 38 yrs Sex: Male : 1985 Arrival Date: 10/26/2023 Time: 18:15 Bed 4 Private MD: Diagnosis: Influenza due to identified novel influenza A virus with other respiratory manifestations;Adverse effect of amphetamines, initial encounter;Chest pain, unspecified Presentation: 10/26 18:24 Chief complaint: Patient states: Cough, headache and body aches onset 3 days. cm10 Coronavirus screen: Vaccine status: Patient reports receiving the 2nd dose of the covid vaccine. Client denies travel out of the [place] in the last 14 days. Ebola Screen: Patient denies travel to an Ebola-affected area in the 21 days before illness onset. No symptoms or risks identified at this time. Initial Sepsis Screen: Does the patient meet any 2 criteria? HR > 90 bpm. Does the patient have a suspected source of infection? No. Patient's initial sepsis screen is negative. Risk Assessment: Do you want to hurt yourself or someone else? Patient reports no desire to harm self or others. Onset of symptoms was October 23, 2023. 18:24 Method Of Arrival: Ambulatory cm10 18:24 Acuity: JAREN 3 cm10 Historical: - Allergies: 18:26 No Known Allergies; cm10 - Home Meds: 18:26 None [Active]; cm10 - PMHx: 18:26 None; cm10 - PSHx: 18:26 None; cm10 - Immunization history:: Adult Immunizations up to date. - Social history:: Smoking status: Patient reports the use of cigarette tobacco products, smokes two packs cigarettes per day. Screenin:49 [facility] ED Fall Risk Assessment (Adult) History of falling in the last 3 months, mb9 including since admission No falls in past 3 months (0 pts) Confusion or Disorientation No (0 pts) Intoxicated or Sedated No (0 pts) Impaired Gait No (0 pts) Mobility Assist Device Used No (0 pt) Altered Elimination No (0 pt) Score/Fall Risk Level 0 - 2 = Low Risk Oriented to surroundings, Maintained a safe environment, Educated pt \T\ family on fall prevention, incl call for assistance when getting out of bed. Abuse screen: Denies threats or abuse. Nutritional screening: No deficits noted. Tuberculosis screening: No symptoms or risk factors identified. Assessment: 18:38 General: Appears in no apparent distress. comfortable, Behavior is calm, cooperative, ld1 appropriate for age. Pain: Denies pain. Neuro: Level of Consciousness is awake, alert, obeys commands, Oriented to person, place, time, situation. Cardiovascular: Capillary refill < 3 seconds Patient's skin is warm and dry. Rhythm is sinus tachycardia. Respiratory: Airway is patent Respiratory effort is even, unlabored. GI: No signs and/or symptoms were reported involving the gastrointestinal system. Reports nausea. : No signs and/or symptoms were reported regarding the genitourinary system. EENT: No signs and/or symptoms were reported regarding the EENT system. Derm: No signs and/or symptoms reported regarding the dermatologic system. Musculoskeletal: No signs and/or symptoms reported regarding the musculoskeletal system. Vital Signs: 18:24 BP 122 / 82; Pulse 147; Resp 18; Temp 98.1; Pulse Ox 100% on R/A; Weight 99.79 kg; cm10 Height 6 ft. 3 in. ; Pain 8/10; 18:38 BP 147 / 111; Pulse 131; Resp 20; Pulse Ox 98% on R/A; ld1 20:24 Pulse 103; Resp 20; Pulse Ox 100% ; la4 20:28 BP 154 / 86; Pulse 107; Resp 20; Pulse Ox 97% ; Pain 8/10; la4 21:53 BP 151 / 87; Pulse 114; Resp 20; Pulse Ox 98% ; la4 18:24 Body Mass Index 27.50 (99.79 kg, 190.5 cm) cm10 18:24 Pain Scale: Adult cm10 20:28 Pain Scale: Adult la4 Vitals: 20:28 Cardiac Rhythm Assessment Regular Sinus tach. la4 Dwale Coma Score: 20:28 Eye Response: spontaneous(4). Motor Response: obeys commands(6). Verbal Response: la4 oriented(5). Total: 15. ED Course: 18:19 Patient arrived in ED. ts1 18:26 Triage completed. cm10 18:26 Arm band placed on Patient placed in an exam room, on a stretcher. cm10 18:28 Jv Travis PA is PHCP. cp 18:28 Jv Salazar MD is Attending Physician. cp 18:34 EKG done, by ED staff, reviewed by Jv APARICIO. mb9 18:39 No provider procedures requiring assistance completed. Inserted saline lock: 18 gauge ld1 in left upper arm, using aseptic technique. Blood collected. 18:40 Blood Culture Adult (2) Sent. ld1 18:40 CBC with Diff Sent. ld1 18:40 CMP Sent. ld1 18:40 Lactate w/ 2H reflex if indic. Sent. ld1 18:40 Protime (+inr) Sent. ld1 18:40 Ptt, Activated Sent. ld1 18:49 Placed in gown. Bed in low position. Call light in reach. Side rails up X 1. Client mb9 placed on continuous cardiac and pulse oximetry monitoring. NIBP monitoring applied. clinical research monitor on. 18:49 COVID-19 SARS RT PCR Sent. mb9 18:49 Influenza Screen (a \T\ B) Sent. mb9 18:49 CK Sent. mb9 18:49 Troponin HS Sent. mb9 18:49 Strep Sent. mb9 19:07 Chest Single View XRAY In Process Unspecified. EDMS 20:13 CT Chest For PE Angio In Process Unspecified. EDMS 20:27 Yissel Marcus, RN is Primary Nurse. la4 21:58 IV discontinued, intact, bleeding controlled, No redness/swelling at site. Pressure la4 dressing applied. 21:59 Provided Education on: plan of care. la4 Administered Medications: 18:50 Drug: NS 0.9% IV 1000 ml IV at 1 bolus Per protocol; 1000 mL bolus Route: IV; Rate: 1 mb9 bolus; Site: left upper arm; 20:24 Follow up: Pulse 103 bpm; Resp 20 bpm; Pulse Ox 100% ; Response: No adverse reaction; la4 IV Status: Completed infusion; IV Intake: 1000ml 18:58 Drug: Ativan IVP 1 mg IVP once Route: IVP; Site: left upper arm; ld1 20:26 Follow up: Response: No adverse reaction; Pain is unchanged, physician notified la4 20:24 Drug: Ketorolac IVP 15 mg IVP once Route: IVP; Site: left antecubital; la4 22:00 Follow up: Response: No adverse reaction; Pain is decreased la4 20:58 Drug: NS 0.9% IV 1000 ml IV at 1 bolus Per protocol; 1000 mL bolus Route: IV; Rate: 1 la4 bolus; Site: left antecubital; 21:59 Follow up: Response: No adverse reaction; IV Status: Completed infusion; IV Intake: la4 1000ml Medication: 18:49 VIS not applicable for this client. mb9 Intake: 20:24 IV: 1000ml; Total: 1000ml. la4 21:59 IV: 1000ml; Total: 2000ml. la4 Output: 20:28 Urine: 400ml (Voided); Total: 400ml. la4 Outcome: 21:47 Discharge ordered by MD. cp 21:58 Discharged to home ambulatory, with significant other, la4 21:58 Condition: improved 21:58 Discharge instructions given to patient, significant other, Instructed on discharge instructions, follow up and referral plans. medication usage, Demonstrated understanding of instructions, follow-up care, medications, Prescriptions given X 2, 22:00 Patient left the ED. la4 Signatures: Dispatcher [employer] EDMS Jv Travis PA PA cp Sims, Lauren RN RN ld1 Vannessa Valdez, RN RN mb9 Toshia Carroll PAS PAS ts1 Kaitlin Jimenez RN RN cm10 Yissel Marcus RN RN la4 Corrections: (The following items were deleted from the chart) 18:41 18:40 Urinalysis+U.LAB.BRZ drawn and sent. 1 EDUT
[2023-10-27 00:47] VITALS: TEMP 98.1
[2023-10-27 01:08] VITALS: BP 151/87; O2SAT 98
--- NOTE | 2023-10-27 16:57 | EKG ---
Test Date: 2023-10-26 Test Time: 18:32:15 Registered Nurse Teacher: IRENE MEASUREMENT RESULTS: Intervals: Rate: 129 WI: 128 QRSD: 88 QT: 290 QTc: 424 [place]: P: 81 WI: 128 QRS: 80 T: 88 INTERPRETIVE STATEMENTS: Sinus tachycardia Otherwise normal ECG No previous ECG available for comparison Electronically Signed On 10-27-23 16:55:30 [employer]HOLE BORER by Rashaad Barrientos
== END ==
LOC: ER 18:15
DX: J10.1 Influenza due to other identified influenza virus with other respiratory manifestations (principal); T43.625A Adverse effect of amphetamines, initial encounter; Z11.52 Encounter for screening for COVID-19
CPT/HCPCS: 36415; 71045; 71275; 80053; 80307; 81003; 82550; 83605; 84484; 85025; 85610; 85730; 87040; 87070; 87081; 87635; 87804; 93005; 99285; J7030; Q9967

== ENCOUNTER 2025-01-09 13:36 | Emergency (ER) | payer OTHER, SELFPAY ==
--- NOTE | 2025-01-09 14:13 | ER ---
Nurse's Notes [facility] Name: Alfredo Day Age: 39 yrs Sex: Male : 1985 Arrival Date: 01/09/2025 Time: 13:36 Bed IW1 Private MD: Diagnosis: Adverse effect of unspecified drugs, medicaments and biological substances;Palpitations Presentation: 01/09 13:49 Chief complaint: Patient states: TOOK XANAX FROM [place] [address] 5 HOURS AGO. NOW HAS db MIDDLE CHEST PAIN, DIZZINESS, FEELS SLEEPY, IS CONCERNED IT WAS LACED WITH FENTANYL. Coronavirus screen: Client denies travel out of the [place] in the last 14 days. At this time, the client does not indicate any symptoms associated with coronavirus-19. Ebola Screen: Patient negative for fever greater than or equal to 101.5 degrees Fahrenheit, and additional compatible Ebola Virus Disease symptoms Patient denies exposure to infectious person. Patient denies travel to an Ebola-affected area in the 21 days before illness onset. No symptoms or risks identified at this time. Initial Sepsis Screen: Does the patient have a suspected source of infection? No. Patient's initial sepsis screen is negative. Initial Sepsis Screen: Does the patient meet any 2 criteria? HR > 90 bpm. No. Patient's initial sepsis screen is negative. Risk Assessment: Do you want to hurt yourself or someone else? Patient reports no desire to harm self or others. Onset of symptoms was January 09, 2025. 13:49 Method Of Arrival: Ambulatory db 13:49 Acuity: JAREN 3 db Triage Assessment: 13:52 General: Appears in no apparent distress. comfortable, Behavior is calm, cooperative, db drowsy. Pain: Complains of pain in chest and epigastric area. Neuro: Level of Consciousness is awake, alert, obeys commands, Oriented to person, place, time, situation. Cardiovascular: Reports chest pain. Respiratory: Airway is patent Respiratory effort is even, unlabored, Respiratory pattern is regular, symmetrical. GI: Abdomen is flat, non-distended, Reports upper abdominal pain. Historical: - Allergies: 13:52 No Known Allergies; db - PMHx: 13:52 None; db - Immunization history:: Adult Immunizations unknown. - Infectious Disease History:: Denies. - Social history:: Patient uses street drugs, Smoking status: unknown. - Family history:: not pertinent. - Hospitalizations: : No recent hospitalization is reported. Screenin:08 [facility] ED Fall Risk Assessment (Adult) History of falling in the last 3 months, db including since admission No falls in past 3 months (0 pts) Confusion or Disorientation No (0 pts) Intoxicated or Sedated No (0 pts) Impaired Gait No (0 pts) Mobility Assist Device Used No (0 pt) Altered Elimination No (0 pt) Score/Fall Risk Level 0 - 2 = Low Risk Oriented to surroundings, Maintained a safe environment. Abuse screen: Denies threats or abuse. Denies injuries from another. Nutritional screening: No deficits noted. Tuberculosis screening: No symptoms or risk factors identified. Assessment: 14:08 Reassessment: Patient appears in no apparent distress at this time. Patient and/or db family updated on plan of care and expected duration. Pain level reassessed. Patient is alert, oriented x 3, equal unlabored respirations, skin warm/dry/pink. STATES FEELS BETTER AND WANTS TO GO HOME Patient states feeling better. Patient states symptoms have improved. General: Appears in no apparent distress. comfortable, Behavior is calm, cooperative. Neuro: Level of Consciousness is awake, alert, obeys commands, Oriented to person, place, time, situation. Respiratory: Airway is patent Respiratory effort is even, unlabored, Respiratory pattern is regular, symmetrical. Vital Signs: 13:49 BP 171 / 94; Pulse 112; Resp 16; Temp 98.9; Pulse Ox 98% on R/A; Weight 95.25 kg; db Height 6 ft. 3 in. ; 13:49 Body Mass Index 26.25 (95.25 kg, 190.5 cm) db ED Course: 13:40 Patient arrived in ED. al6 13:42 Miguel Ángel Marroquin MD is Attending Physician. rn 13:52 Triage completed. db 13:52 Arm band placed on Patient placed in an exam room. db 14:08 Patient has correct armband on for positive identification. Provided Education on:. db Provided Education on: FOLLOWUP . 14:08 No provider procedures requiring assistance completed. Patient did not have IV access db during this emergency room visit. Administered Medications: No medications were administered Medication: 14:08 VIS not applicable for this client. db Outcome: 14:08 Discharged to home ambulatory, with family, db 14:08 Condition: stable 14:08 Discharge instructions given to patient, family, Instructed on follow up and referral plans. 14:13 Discharge ordered by . rn 14:17 Patient left the ED. cm10 Signatures: Miguel Ángel Marroquin MD MD rn Benton, Danielle, RN RN db Martinez, Clarissa, RN RN cm10 Soo Guaman
--- NOTE | 2025-01-09 14:13 | EDPHYS ---
Physician Documentation [facility] Name: Alfredo Day Age: 39 yrs Sex: Male : 1985 Arrival Date: 01/09/2025 Time: 13:36 Bed IW1 Private MD: ED Physician Miguel Ángel Marroquin HPI: 01/09 14:06 This 39 yrs old Black Male presents to ER via Ambulatory with complaints of drug use. rn palpitations. 14:06 The patient presents with feeling faint, generalized weakness, lightheadedness. Onset: rn The symptoms/episode began/occurred 5 hour(s) ago. Modifying factors: The symptoms are alleviated by nothing, the symptoms are aggravated by nothing. Severity of symptoms: At their worst the symptoms were moderate in the emergency department the symptoms have improved. Patient reports was using drugs earlier, but he took a Xanax but now is not sure. States he has had Xanax before but this feels different. Patient reports feeling sleepy but also palpitations and dizziness with lightheadedness. No shortness of breath. Patient overall feeling better and took the pill 5 hours ago.. Historical: - Allergies: 13:52 No Known Allergies; db - PMHx: 13:52 None; db - Immunization history:: Adult Immunizations unknown. - Infectious Disease History:: Denies. - Social history:: Patient uses street drugs, Smoking status: unknown. - Family history:: not pertinent. - Hospitalizations: : No recent hospitalization is reported. ROS: 14:06 Constitutional: Negative for fever, chills, and weight loss, Eyes: Negative for injury, rn pain, redness, and discharge, ENT: Negative for injury, pain, and discharge, Neck: Negative for injury, pain, and swelling, Cardiovascular: Positive for palpitations, negative for chest pain Respiratory: Negative for shortness of breath, cough, wheezing, and pleuritic chest pain, Abdomen/GI: Negative for abdominal pain MS/Extremity: Negative for injury and deformity, Neuro: Negative for headache, positive for generalized malaise and dizziness Exam: 14:06 Constitutional: This is a well developed, well nourished patient who is awake, alert, rn and in no acute distress. ENT: Dry mucous membranes Cardiovascular: Tachycardic, regular. Respiratory: Speaking full sentences, unlabored. No increased work of breathing, no retractions or nasal flaring. Abdomen/GI: Soft, non-tender MS/ Extremity: Pulses equal, no cyanosis. Neurovascular intact. Full, normal range of motion. Equal circumference. Neuro: Awake and alert, GCS 15, oriented to person, place, time, and situation. Cranial nerves II-XII grossly intact. Motor strength 5/5 in all extremities. Sensory grossly intact. Cerebellar exam normal. Normal gait. Vital Signs: 13:49 BP 171 / 94; Pulse 112; Resp 16; Temp 98.9; Pulse Ox 98% on R/A; Weight 95.25 kg; db Height 6 ft. 3 in. ; 13:49 Body Mass Index 26.25 (95.25 kg, 190.5 cm) db MDM: 13:42 Medical Screening Exam initiated rn 14:06 Differential diagnosis: cardiac arrhythmia, generalized weakness, idiopathic dizziness, rn near-syncope, Adverse effect of drugs, possible mixture of benzodiazepines and perhaps stimulant.. Data reviewed: vital signs, nurses notes. Counseling: I had a detailed discussion with the patient and/or guardian regarding the historical points, exam findings, and any diagnostic results supporting the discharge/admit diagnosis, the need for outpatient follow up, to return to the emergency department if symptoms worsen or persist or if there are any questions or concerns that arise at home. Refusal of service: The patient/guardian displays adequate decision making capability and despite a detailed discussion of alternatives, benefits, risks, and consequences refuses: all lab tests, Medications. ED course: Patient evaluated by me in triage, recommended drug screen as well as IV fluids, EKG and blood work. Patient reports he is feeling better and does not want to be evaluated. Declines evaluation and/or workup. We attempted to place him in a room for evaluation and patient decided to walk out of the emergency room. Family member tried to convince him as well and it did not work. Will discharge per patient's request. Recommended immediate return if anything changes or worsens.. 01/09 13:54 Order name: IV Start rn 01/09 13:54 Order name: EKG - Nurse/Tech rn Administered Medications: No medications were administered Disposition Summary: 01/09/25 14:13 Discharge Ordered Notes: Location: Home rn Problem: new rn Symptoms: have improved rn Condition: Stable rn Diagnosis - Adverse effect of unspecified drugs, medicaments and biological substances rn - Palpitations rn Followup: rn - With: Private Physician - When: As needed - Reason: Recheck today's complaints, Re-evaluation by your physician Discharge Instructions: - Discharge Summary Sheet rn - Accidental Drug Poisoning, Adult rn - Palpitations rn Forms: - Medication Reconciliation Form rn - Antibiotic business services intern - Prescription Opioid Use rn - Patient Portal Instructions rn - Leadership Thank You Letter rn Signatures: Dispatcher [employer] EDMS Miguel Ángel Marroquin MD MD rn Benton, Danielle, RN RN db Corrections: (The following items were deleted from the chart) 13:54 13:54 URINE DRUG SCREEN+UC.LAB.BRZ ordered. EDMS EDMS 13:54 13:54 CBC+H.LAB.BRZ ordered. EDMS EDMS 13:54 13:54 BASIC METABOLIC PANEL+C.LAB.BRZ ordered. EDMS EDMS 13:54 13:54 Troponin High Sensitivity+C.LAB.BRZ ordered. EDMS EDMS
[2025-01-09 14:47] VITALS: BP 171/94; TEMP 98.9; O2SAT 98
== END 2025-01-09 14:17 | disposition home or self-care (01) ==
LOC: ER 13:36
DX: R00.2 Palpitations (principal); T42.4X5A Adverse effect of benzodiazepines, initial encounter